=== PATIENT | male | born 1960 | race Caucasian/White ===

== ENCOUNTER → 2016-08-04 | Outpatient (CLI) | payer BC ==
[2016-08-04 16:37] LABS: Blood Urea Nitrogen 15 mg/dL (9-20); Non-African American GFR(MDRD) 55 (>60 ml/min/1.73 sqM)
--- NOTE | 2016-08-04 22:11 | MR ---
EXAMINATION TYPE: MR iac wo/w con DATE OF EXAM: 08/04/2016 5:44 PM COMPARISON: NONE HISTORY: TINNITUS, HEARING LOSS, DIZZINESS AND GIDDINESS TECHNIQUE: T1-weighted sagittal, diffusion, T2, and FLAIR axial views of the brain are submitted. Th e high-resolution T2 axial and postcontrast T1 axial and coronal views of the IACs are submitted. FINDINGS: There is no pathologic enhancement of the seventh and eighth cranial nerve complex. There is no acou stic neuroma. Intraorbital structures have a normal appearance. No cerebellopontine angle mass no abnormal signal within the mastoid air cells. Optic chiasm has a no rmal appearance. The pituitary stalk midline. Visualized sella enhances homogeneously. Changes of mild chronic ethmoidal sinusitis. There are a few scattered areas of abnormal signal all measuring less than 5 mm within the white nely er bilaterally which are nonspecific. IMPRESSION: 1. No evidence of acoustic schwannoma or cerebellopontine angle mass. 2. There are a few scattered areas of abnormal signal within the white matter bilaterally which are n ot cystic. BE seen with hypertension or migraine headaches. Other etiologies including demyelinating disease or remote microvascular ischemia not entirely excluded.
== END | disposition home or self-care (01) ==
LOC: RADMRIMAIN 16:09
PROVIDERS: ATTEND Otolaryngology
DX: R42 Dizziness and giddiness (principal); H93.19 Tinnitus, unspecified ear; H91.90 Unspecified hearing loss, unspecified ear
CPT/HCPCS: 82565; 84520; 70553; A9577

== ENCOUNTER → 2022-02-27 | Outpatient (CLI) | payer BC ==
--- NOTE | 2022-02-27 10:23 | US ---
EXAMINATION TYPE: US liver DATE OF EXAM: 02/27/2022 COMPARISON: NONE CLINICAL HISTORY: E83.119 HEMOCHRONATOSIS. Pt states known hemochronatosis x 20+ years, GB removed 10 + years ago TECHNIQUE: Multiple sonographic images of the right upper quadrant are obtained. 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 No acute abnormality right upper quadrant ultrasound. 2. Mild hepatomegaly with fatty infiltration
== END | disposition home or self-care (01) ==
LOC: RADUSWWP 07:25
PROVIDERS: ATTEND Internal Medicine Hematology & Oncology
DX: K76.0 Fatty (change of) liver, not elsewhere classified (principal); E83.110 Hereditary hemochromatosis
CPT/HCPCS: 76705

== ENCOUNTER → 2022-03-11 | Outpatient (CLI) | payer BC ==
[2022-03-11 14:44] LABS: Basophils # (A) 0.06 X 10*3/uL (0.00-0.10); Basophils % (A) 1.2 %; Eosinophils % (A) 2.1 %; HCT 47.7 % (39.6-50.0); HGB 16.1 g/dL (13.0-17.0); Immature Grans, Automated 0.4 %; Lymphocytes # (A) 1.35 X 10*3/uL (0.90-5.00); Lymphocytes % (A) 27.7 %; MCH 29.8 pg (27.0-32.0); MCHC 33.8 g/dL (32.0-37.0); MCV 88.2 fL (80.0-97.0); Mean Platelet Volume 10.3 fL (9.5-12.2); Monocytes # (A) 0.53 X 10*3/uL (0.20-1.00); Monocytes % (A) 10.9 %; NRBC Per 100 WBC 0 /100 WBCS (0.0-0.0); Neutrophils # (A) 2.81 X 10*3/uL (1.80-7.70); Neutrophils % (A) 57.7 %; Platelet Count 235 X 10*3/uL (140-440); RBC 5.41 X 10*6/uL (4.40-5.60); RDW 13.2 % (11.5-14.5); WBC 4.87 X 10*3/uL (4.50-10.00)
== END | disposition home or self-care (01) ==
LOC: LABPAT 08:43
PROVIDERS: ATTEND Surgery
DX: Z01.812 Encounter for preprocedural laboratory examination (principal)
CPT/HCPCS: 85025

== ENCOUNTER 2022-03-13 08:27 | Day surgery (SDC) | payer BC ==
[~2022-03-13 08:27] MED LIST: ACETAMINOPHEN TAB 500 MG TAB PO PRN; HEPARIN SODIUM,PORCINE/PF 5,000 UNIT/0.5 ML SYRINGE SQ PRN; MIDAZOLAM 2 MG/2 ML VIAL IV PRN; SCOPOLAMINE 1 MG/72 HR PATCH TRANSDERM ONE; fentaNYL (PF) 50 MCG/ML 2 ML AMP IV PRN
[2022-03-13] MEDS: LACTATED RINGERS 1,000 ML IV SCH ×2 (08:49→09:00)
[2022-03-13] MEDS: DEXAMETHASONE SOD PHOSPHATE 4 MG/ML 1 ML VIAL IV ONE ×2 (08:49→09:10)
[2022-03-13] MEDS: ONDANSETRON 4 MG/2 ML VIAL IVP ONE ×2 (08:49→09:12)
[2022-03-13 09:09] LABS: Glucose,Whole Blood 117 mg/dL (70-110)
[2022-03-13 09:42] LABS: Potassium 3.7 mmol/L (3.5-5.1)
--- NOTE | 2022-03-13 09:49 | P.GSHP ---
History of Present Illness H&P Date: 03/13/22 Chief Complaint: Right inguinal, incisional hernia 61-year-old male last seen in August. Patient has history of a right inguinal hernia for at least 5 years. Patient with history of previous open sigmoid colectomy for diverticulitis. Also has history of laparoscopic cholecystectomy. Patient found have an incisional hernia at the gallbladder extraction site in the epigastrium as well as a right inguinal hernia. Here for surgical repair. Past Medical History Past Medical History: Asthma, Diabetes Mellitus, Hyperlipidemia, Hypertension, Sleep Apnea/CPAP/BIPAP Additional Past Medical History / Comment(s): cold air induced asthma, "borderline" diabetic no meds as yet, uses cpap diverticulosis, hemachromatosis, arthritis in neck, reports no issue with extension of neck to back only with side to side neck positioning. History of Any Multi-Drug Resistant Organisms: None Reported Past Surgical History: Bowel Resection, Cholecystectomy, Orthopedic Surgery Additional Past Surgical History / Comment(s): Rt shoulder ,sinus surgery Past Anesthesia/Blood Transfusion Reactions: No Reported Reaction Smoking Status: Never smoker Medications and Allergies Home Medications Medication Instructions Recorded Confirmed Type Albuterol Inhaler [Ventolin Hfa 1 - 2 puff INHALATION Q6H PRN 03/12/22 03/13/22 History Inhaler] Aspirin [Adult Low Dose Aspirin EC] 81 mg PO DAILY 03/12/22 03/13/22 History Chlorthalidone 25 mg PO DAILY 03/12/22 03/13/22 History EPINEPHrine (Auto Inject) [Epipen] 1 injection INJ ONCE PRN 03/12/22 03/13/22 History Fenofibrate,Micronized 134 mg PO DAILY 03/12/22 03/13/22 History [Fenofibrate] Folic Acid 1 tab PO DAILY 03/12/22 03/13/22 History Ipratropium Lead [Ipratropium 2 sprays INHALATION BID PRN 03/12/22 03/13/22 History Lead 0.03%] Potassium Chloride [K-Tab ER] 20 meq PO DAILY 03/12/22 03/13/22 History amLODIPine 10 mg PO DAILY 03/12/22 03/13/22 History Allergies Allergy/AdvReac Type Severity Reaction Status Date / Time azithromycin [From Zithromax] Allergy Severe Swelling Verified 03/13/22 08:43 bee pollen Allergy Severe Unknown Verified 03/13/22 08:43 Sulfa (Sulfonamide Allergy Unknown Unknown Verified 03/13/22 08:43 Antibiotics) Fish Containing Products Allergy Unknown Verified 03/13/22 08:43 [Fish] hydromorphone [From Dilaudid] Allergy Rash/Hives Verified 03/13/22 08:43 meperidine [From Demerol] Allergy Rapid Verified 03/13/22 08:43 Heart Rate metoclopramide [From Reglan] Allergy Rapid Verified 03/13/22 08:43 Heart Rate latex AdvReac Rash/Hives Verified 03/13/22 08:43 lisinopril AdvReac Unknown Verified 03/13/22 08:43 metoprolol AdvReac Unknown Verified 03/13/22 08:43 Surgical - Exam Vital Signs Temp Pulse Resp BP Pulse Ox 97 F L 75 18 163/84 95 03/13/22 08:48 03/13/22 08:48 03/13/22 08:48 03/13/22 08:48 03/13/22 08:48 Physical exam: General: Well-developed, well-nourished HEENT: Normocephalic, sclerae nonicteric Abdomen: Nontender, nondistended, small reducible epigastric incisional hernia, reducible right inguinal hernia Extremities: No edema Neuro: Alert and oriented Results - Labs 03/13/22 09:09 Abnormal Lab Results - Last 24 Hours (Table) 03/13/22 Range/Units 09:03 POC Glucose (mg/dL) 117 H (70-110) mg/dL Diabetes panel 03/13/22 Range/Units 09:09 Sodium 138 (137-145) mmol/L Potassium 3.7 (3.5-5.1) mmol/L Chloride 103 (98-107) mmol/L Carbon Dioxide 24 (22-30) mmol/L Pituitary panel 03/13/22 Range/Units 09:09 Sodium 138 (137-145) mmol/L Potassium 3.7 (3.5-5.1) mmol/L Chloride 103 (98-107) mmol/L Carbon Dioxide 24 (22-30) mmol/L Adrenal panel 03/13/22 Range/Units 09:09 Sodium 138 (137-145) mmol/L Potassium 3.7 (3.5-5.1) mmol/L Chloride 103 (98-107) mmol/L Carbon Dioxide 24 (22-30) mmol/L Assessment and Plan (1) Right inguinal hernia Narrative/Plan: Will proceed with open incisional hernia repair with mesh, will attempt laparoscopic da Chel assisted repair right inguinal hernia with mesh, possible open, possible bilateral. Discussed risks of possible significant abdominal adhesions leading to conversion to open procedure of the inguinal hernia. Risks of bleeding, infection, recurrence, bladder and bowel injury, numbness, nerve injury, conversion to an open procedure were discussed with the patient. The patient understands and wishes to proceed. Current Visit: Yes Status: Acute Code(s): K40.90 - UNIL INGUINAL HERNIA, W/O OBST OR GANGR, NOT SPCF RECUR SNOMED Code(s): 123326685 (2) Incisional hernia Current Visit: Yes Status: Acute Code(s): K43.2 - INCISIONAL HERNIA WITHOUT OBSTRUCTION OR GANGRENE SNOMED Code(s): 366197371
[2022-03-13] MEDS ORDERED: GLYCOPYRROLATE 0.2 MG/ML 2 ML VIAL ONE (10:01)
[2022-03-13] MEDS ORDERED: PROPOFOL 10 MG/ML 20 ML VIAL IV ONE (10:01)
[2022-03-13] MEDS ORDERED: MIDAZOLAM 2 MG/2 ML VIAL ONE (10:01)
[2022-03-13] MEDS ORDERED: LIDOCAINE 2% INJ 20 MG/ML (2 ML VIAL) ONE (10:01)
[2022-03-13] MEDS ORDERED: ROCURONIUM 10 MG/ML (5 ML VIAL) IV ONE (10:01)
[2022-03-13] MEDS ORDERED: SUCCINYLCHOLINE CHLORIDE 200 MG/10 ML VIAL IV ONE (10:01)
[2022-03-13] MEDS ORDERED: NEOSTIGMINE 1 MG/ML 10 ML VIAL ONE (10:01)
[2022-03-13] MEDS ORDERED: fentaNYL (PF) 50 MCG/ML 2 ML AMP ONE (10:01)
[2022-03-13] MEDS ORDERED: BUPIVACAINE (PF) 0.25% 30 ML VIAL SQ ONE (10:06)
[2022-03-13] MEDS ORDERED: LACTATED RINGERS 1,000 ML IV ONE (11:29)
[2022-03-13] MEDS ORDERED: ACETAMINOPHEN TAB 325 MG TAB PO SCH (12:00)
--- NOTE | 2022-03-13 12:03 | P.OP ---
Date of Procedure: 03/13/22 Procedure(s) Performed: PREOPERATIVE DIAGNOSIS: Incarcerated incisional hernia, reducible right inguinal hernia POSTOPERATIVE DIAGNOSIS: Same PROCEDURE: Open repair incarcerated incisional hernia with mesh, laparoscopic da Chel assisted repair right inguinal hernia with mesh SURGEON: Dr. Steve ANESTHESIA: General OPERATIVE PROCEDURE DETAILS: Patient was placed in the operating table in the supine position. The patient was placed under general anesthesia. The abdomen was prepped and draped in usual sterile fashion. Incisional hernia was first addressed. An incision was made through the previous gallbladder extraction site. Dissection through the subcutaneous tissues took place using electroc autery. A small hernia was identified that was incarcerated. This was dissected away from the defect in the fascia which measured 1.5 cm x 1 cm. An opening was made in the hernia sac and entrance into the peritoneal cavity occurred. The 8 mm trocar was advanced into the abdominal cavity. The scope was inserted in the abdominal cavity was inspected. Surprisingly there were no adhesions in the abdomen. I placed a supraumbilical 8 mm trocar under direct visualization. The pneumoperitoneum was then allowed to evacuate. I then reduced the hernia sac. The preperitoneal space was dissected using blunt dissection and cautery. The 4.3 cm ventral ex mesh was placed beneath the fascia and sutured in place using trans-fascial 0 Ethibond sutures. The defect in the fascia was then reapproximated interrupted [id number] 0 Ethibond sutures. Later the saphenous tissues were closed using 3-0 Vicryl sutures and the skin using a running 4-0 Monocryl stitch. Next we approached the laparos copic repair of the right inguinal hernia. The camera was inserted and the umbilical trocar that was previously placed. Pneumoperitoneum was achieved. 2 additional 8 mm trochars were placed in the right upper quadrant and left upper quadrant under visualization. The robotic arms were then brought in and docked into place. The fenestrated bipolar was used in the left arm and the laparoscopic savanna was utilized in the right arm. A 30 8 mm scope was used in the up position. The peritoneal cavity was inspected. No visible hernia on the left was seen. The patient had a moderate to large direct hernia on the right. The peritoneum was incised in a horizontal fashion cephalad to the internal inguinal ring. Following that careful dissection of the preperitoneal space took place. This took place using both electrocautery, sharp dissection but primarily blunt dissection. Visualization of the pubic tubercle and Jey's ligament took place medially. Full dissection took place laterally as well. The hernia sac was fully dissected. There were 2 defects in the direct space adjacent one another with a vessel traversing the area them. Once we had adequate space the extra-large Bard 3-D mid mesh was advanced into the preperitoneal space and flattened out appropriately to cover all potential hernia sites. I sutured the mesh medially to the Jey's ligament extending superiorly using a absorbable 20V lock suture. The peritoneal defect was then closed using a absorbable 2-0 VLok suture. The hernia sac was incorporated into the peritoneal closure to help prevent future recurrence. The pneumoperitoneum was then evacuated. The skin of all 3 sites was closed using a 4-0 Monocryl stitch. Skin glue was then applied. TYPE OF MESH USED: Bard 3-D mid XL, ventral ex 4.3 cm LOCATION OF MESH: Sub-lay/preperitoneal PREOPERATIVE DISCUSSION ON SMOKING CESSASTION: Yes PREOPERATIVE DISCUSSION ON MORBID OBESITY: Yes PREOPERATIVE DISCUSSION ON APPROPRIATE USE OF NARCOTIC USE: Yes PREOPERATIVE EDUCATION: Multi Modal, Smoking Cessation and Weight Loss with BMI over 35. DISPOSITION: Stable to recovery room
[2022-03-13 12:09] VITALS: RESP 16; TEMP 97.6
[2022-03-13 12:20] LABS: Glucose,Whole Blood 124 mg/dL (70-110)
[2022-03-13] MEDS ORDERED: traMADol 50 MG TAB ONE (13:16)
[2022-03-13] MEDS ORDERED: traMADol 50 MG TAB PO ONE (13:17)
[2022-03-13 13:53] VITALS: BP 156/84
[2022-03-13] MEDS ORDERED: ALBUTEROL NEBULIZED 2.5 MG/3 ML INHALATION PRN (13:58)
[2022-03-13 14:11] VITALS: PULSE 86
[2022-03-13] MEDS ORDERED: IBUPROFEN 600 MG TAB PO SCH (15:00)
== END 2022-03-13 14:38 | disposition home or self-care (01) ==
LOC: OR 08:27
PROVIDERS: ATTEND Surgery
DX: K40.90 Unilateral inguinal hernia, without obstruction or gangrene, not specified as recurrent (principal); K43.0 Incisional hernia with obstruction, without gangrene; J45.909 Unspecified asthma, uncomplicated; E11.9 Type 2 diabetes mellitus without complications; E78.5 Hyperlipidemia, unspecified; G47.33 Obstructive sleep apnea (adult) (pediatric); I10 Essential (primary) hypertension; Z98.890 Other specified postprocedural states; Z90.49 Acquired absence of other specified parts of digestive tract; Z79.51 Long term (current) use of inhaled steroids; Z79.82 Long term (current) use of aspirin; Z79.899 Other long term (current) drug therapy; Z88.2 Allergy status to sulfonamides
CPT/HCPCS: 94640; 86900; 86901; 80051; 86850; 49561; 49568; 49650; C1781 ×2; J2250; J0330; J1100; J2710; J0690; J2405; J3010; J2704; J1644; J2001

== ENCOUNTER → 2023-04-26 | Outpatient (CLI) | payer BC ==
--- NOTE | 2023-04-26 08:39 | US ---
EXAMINATION TYPE: US liver DATE OF EXAM: 04/26/2023 COMPARISON: 02/27/22 CLINICAL INDICATION: Male, 62 years old with history of E83.119 HEMOCHROMATOSIS, UNSP; TECHNIQUE: Multiple sonographic images of the right upper quadrant are obtained. 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
== END | disposition home or self-care (01) ==
LOC: RADUSWWP 08:06
PROVIDERS: ATTEND Internal Medicine Hematology & Oncology
DX: E83.119 Hemochromatosis, unspecified (principal)
CPT/HCPCS: 76705

== ENCOUNTER → 2023-11-16 | Outpatient (CLI) | payer BC ==
[2023-11-16 15:12] LABS: Basophils # (A) 0.04 X 10*3/uL (0.00-0.10); Basophils % (A) 0.6 %; Eosinophils # (A) 0.17 X 10*3/uL (0.04-0.35); Eosinophils % (A) 2.6 %; HCT 49.1 % (39.6-50.0); HGB 17.5 g/dL (13.0-17.0); Lymphocytes # (A) 1.58 X 10*3/uL (0.90-5.00); Lymphocytes % (A) 24.4 %; MCH 30.9 pg (27.0-32.0); MCHC 35.6 g/dL (32.0-37.0); MCV 86.7 FL (80.0-97.0); Mean Platelet Volume 10.5 FL (9.5-12.2); Monocytes # (A) 0.74 X 10*3/uL (0.20-1.00); Monocytes % (A) 11.4 %; NRBC Per 100 WBC 0 X 10*3/uL (0.00-0.01); Neutrophils # (A) 3.89 X 10*3/uL (1.80-7.70); Neutrophils % (A) 60.2 %; Platelet Count 235 X 10*3/uL (140-440); RBC 5.66 X 10*6/uL (4.40-5.60); WBC 6.47 X 10*3/uL (4.50-10.00)
[2023-11-16 15:55] LABS: ALT 32 U/L (10-49); AST 23 U/L (14-35); Blood Urea Nitrogen 13.9 mg/dL (9.0-27.0); C Reactive Protein <0.30 mg/dL (0.00-0.80); Calcium 10.1 mg/dL (8.7-10.3); Carbon Dioxide 23.6 mmol/L (21.6-31.8); Chloride 103 mmol/L (96-109); Creatine Kinase 144 U/L (35-257); Glucose 112 mg/dL (70-110); Rheumatoid Factor, Qnt <15 IU/mL (0-15); Sodium 139 mmol/L (135-145); Uric Acid 5.1 mg/dL (3.7-8.7)
[2023-11-16 16:09] LABS: Erythrocyte Sedimentation Rate 13 mm/Hr (0-20)
[2023-11-17 11:00] LABS: HLA B27 NEGATIVE
[2023-11-17 12:33] LABS: Angiotensin-1 Converting Enz. 20 U/L (8-52)
[2023-11-17 21:23] LABS: Cyclic Citrull Pep IgG Unit <1.5 U/mL (<=3.9); Cyclic Citrullinated Pep IgG Negative
== END | disposition home or self-care (01) ==
LOC: LABWHC1 10:48
PROVIDERS: ATTEND Orthopaedic Surgery
DX: M18.12 Unilateral primary osteoarthritis of first carpometacarpal joint, left hand (principal); S64.22 Injury of radial nerve at wrist and hand level of left arm; R20.2 Paresthesia of skin
CPT/HCPCS: 36415; 80048; 82164; 82306; 82550; 83520; 84439; 84443; 84450; 84460; 84550; 85025; 85652; 86038; 86140; 86200; 86431; 86812

== ENCOUNTER → 2024-05-09 | Outpatient (CLI) | payer BC ==
--- NOTE | 2024-05-09 09:43 | US ---
EXAMINATION TYPE: US abdomen complete DATE OF EXAM: 05/09/2024 COMPARISON: US liver 04/26/2023, 02/27/2022 CLINICAL INDICATION: Male, 63 years old with history of E83.119 HEMOCHROMATOSIS; Hemochromatosis TECHNIQUE: Grayscale and color Doppler imaging of the abdomen was performed. FINDINGS: EXAM MEASUREMENTS: Liver Length: 19.6 cm Gallbladder Wall: Surgically absent CBD: 0.4 cm Spleen: 14.0 cm Right Kidney: 12.6 x 5.2 x 5.5 cm Left Kidney: 12.5 x 6.7 x 6.2 cm FISH WARDEN NOTES: Pancreas: Obscured by bowel gas Liver: Enlarged, heterogeneous Gallbladder: Surgically absent CBD: wnl Spleen: wnl Right Kidney: No evidence of hydro, possible echogenic foci mid= 0.5 cm Left Kidney: No evidence of hydro Upper IVC: wnl Abd Aorta: Proximal portion gassed out, mid and distal ectatic without evidence of AAA The liver is enlarged and heterogenous with diffusely increased echogenicity. This appearance limits evaluation for masses. No overt surface nodularity. The intrahepatic portion of the IVC is within nor mal limits. The proximal portion of the abdominal aorta is obscured by overlying bowel gas. The mid a nd distal portions of the abdominal aorta are within normal limits. The gallbladder is surgically abs ent. Common bile duct is unremarkable. The pancreas is obscured by overlying bowel gas. The spleen is at the top end of normal for size. Kidneys are symmetric and free of hydronephrosis. No left renal calculi. Nonshadowing echogenic focus within the midportion of the right kidney. IMPRESSION: 1. Hepatomegaly with diffuse fatty infiltration. No overt cirrhotic appearance. No focal lesion defi nitively identified. 2. Spleen is at the top end of normal for size. 3. Nonshadowing echogenic focus within the midportion of the right kidney which may represent a nons pecific calculus versus renal sinus fat. 4. Post cholecystectomy changes. [facility], , 05/09/2024 9:40 AM
== END | disposition home or self-care (01) ==
LOC: RADUSWWP 07:04
PROVIDERS: ATTEND Internal Medicine Hematology & Oncology
DX: E83.119 Hemochromatosis, unspecified (principal); K76.0 Fatty (change of) liver, not elsewhere classified; I82.5Z9 Chronic embolism and thrombosis of unspecified deep veins of unspecified distal lower extremity; G47.31 Primary central sleep apnea; R16.0 Hepatomegaly, not elsewhere classified; Z90.49 Acquired absence of other specified parts of digestive tract
CPT/HCPCS: 76700

== ENCOUNTER → 2024-12-18 | Outpatient (CLI) | payer MEDICARE ==
--- NOTE | 2024-12-18 10:47 | US ---
EXAMINATION TYPE: US abdomen limited DATE OF EXAM: 12/18/2024 COMPARISON: Abdominal ultrasound 05/09/24, liver ultrasound 04/26/2023, 02/27/2022 CLINICAL INDICATION: Male, 64 years old with history of E83.119 HEMOCHROMATOSIS, UNSPECIFIED; TECHNIQUE: Grayscale and color Doppler imaging of the right upper quadrant was performed. FINDINGS: EXAM MEASUREMENTS: Liver Length: 18.0 cm Gallbladder Wall: Surgically absent CBD: 0.34 cm Right Kidney: 12.7 x 5.3 x 5.2 cm FOLDER TIER NOTES: Pancreas: Obscured by bowel gas Liver: Increased attenuation, hepatomegaly Gallbladder: Surgically absent CBD: wnl Right Kidney: echogenic area measuring 0.6cm Pancreas is obscured by overlying bowel gas. The liver is borderline enlarged. Diffuse increased echo genicity of the liver without focal lesion identified. No overt surface nodularity. Gallbladder surgi aaron absent. Common bile duct is within normal limits. Right kidney demonstrates no hydronephrosis o r solid mass. Nonobstructing calculus identified. IMPRESSION: 1. Hepatomegaly with diffusely echogenic liver which can be seen with reported hemachromatosis. No ov ert cirrhotic appearance. No focal lesion identified. 2. Post cholecystectomy changes. 3. Nonobstructing right renal calculus. [facility], , 12/18/2024 10:44 AM
== END | disposition home or self-care (01) ==
LOC: RADUSWWP 10:20
PROVIDERS: ATTEND Internal Medicine Hematology & Oncology
DX: N20.0 Calculus of kidney (principal); E83.119 Hemochromatosis, unspecified; I10 Essential (primary) hypertension; G47.31 Primary central sleep apnea; E78.5 Hyperlipidemia, unspecified; K76.0 Fatty (change of) liver, not elsewhere classified; I82.5Z9 Chronic embolism and thrombosis of unspecified deep veins of unspecified distal lower extremity; Z71.3 Dietary counseling and surveillance; R16.0 Hepatomegaly, not elsewhere classified; Z90.49 Acquired absence of other specified parts of digestive tract
CPT/HCPCS: 76705